=== PATIENT | female | born 1990 | race African-American/Black ===

== ENCOUNTER 2016-06-27 20:21 | Emergency (ER) | payer MEDICAID ==
--- NOTE | 2016-06-27 23:26 | ER Document Report ---
ED General - General Chief Complaint: Vaginal pain/ pressure, spotting Stated Complaint: VAGINAL PAIN Notes: Patient is a 25-year-old female who presents with complaint of pain and cramping in her abdomen. She also some vaginal spotting. This is her fourth . First 2 pregnancies resulted in live births. Third resulted in miscarriage. She's had no complications this thus far. Vomiting. No diarrhea. She says that the spotting since stopped. The cramping also seems to have stopped. She is approximately 20 weeks by dates. TRAVEL OUTSIDE OF THE [place] IN LAST 30 DAYS: No - Related Data Allergies/Adverse Reactions: No Known Allergies Allergy (Verified 09/03/15 00:05) Past Medical History - Social History Smoking Status: Never Smoker Frequency of alcohol use: None Drug Abuse: None Family History: Reviewed & Not Pertinent Pulmonary Medical History: Reports: Hx Pneumonia Renal/ Medical History: Denies: Hx Peritoneal Dialysis - Immunizations Immunizations up to date: Yes Hx Diphtheria, Pertussis, Tetanus Vaccination: Yes Review of Systems - Review of Systems Notes: My Normal Review Basic REVIEW OF SYSTEMS: CONSTITUTIONAL : Denies fever, chills, or sweats. Denies recent illness. EENT: Denies eye, ear, throat, or mouth pain or symptoms. Denies nasal or sinus congestion. RESPIRATORY: Denies cough, cold, or chest congestion. Denies shortness of breath, difficulty breathing, or wheezing. GASTROINTESTINAL: Denies abdominal pain. Denies nausea, vomiting, or diarrhea. Denies constipation. Last BM: GENITOURINARY: Denies difficulty urinating, painful urination, burning, frequency, or blood in urine. FEMALE GENITOURINARY: Some vaginal spotting LMP: Currently SKIN: Denies rash or skin lesions. HEMATOLOGIC : Denies easy bruising or bleeding. NEUROLOGICAL: Denies altered mental status or loss of consciousness. Denies headache. Denies weakness or paralysis or loss of use of either side. Denies problems with gait or speech. Denies sensory or motor loss. ALL OTHER SYSTEMS REVIEWED AND NEGATIVE. Physical Exam - Notes Notes: General Appearance: Well nourished, alert, cooperative, no acute distress, no obvious discomfort. Vitals: reviewed, See vital signs table. Head: no swelling or tenderness to the head Eyes: PERRL, EOMI, Conjuctiva clear Mouth: No decreasd moisture Neck: Supple, no neck tenderness, Lungs: No wheezing, No rales, No rhonci, No accessory muscle use, good air exchange bilaterally. Heart: Normal rate, Regular rythm, No murmur, no rub Abdomen: Normal BS, soft, No rigidity, No abdominal tenderness, No guarding, no rebound, no abdominal masses, no organomegaly Pelvic exam: Normal external genitalia except for one small inflamed hair follicle. No surrounding erythema infection. Patient says she gets these frequently. No abscess to be drained. Speculum exam shows no blood. She does have some creamy type discharge. Close cervical os. Extremities: strength 5/5 in all extremities, good pulses in all extremities, no swelling or tenderness in the extremities, no edema. Skin: warm, dry, appropriate color, no rash Neuro: speech clear, oriented x 3, normal affect, responds appropriately to questions. Course - Transfer of Care Notes: 06/28/16 01:46 Patient's vaginal swab did show evidence of bacterial vaginosis. She was placed on antibiotic. She again denies any concerns for sexually transmitted diseases. She says she was recently tested and this was negative. Gonorrhea and chlamydia swabs here are pending. I informed her we would call her if they' re positive. Encourage her follow closely with her OB for reevaluation. I encourage her to return to ER immediately if she has vaginal bleeding, pain, or feels unwell. Cornea patient's previous records she is blood type B positive and therefore RhoGAM workup was not ordered. Dictation of this chart was performed using voice recognition software; therefore, there may be some unintended grammatical errors. Discharge - Discharge Clinical Impression: Bacterial vaginosis Abdominal pain Qualifiers: Abdominal location: lower abdomen, unspecified Qualified Code(s): R10.30 - Lower abdominal pain, unspecified Qualifiers: Weeks of gestation: 20 weeks Qualified Code(s): Z3A.20 - 20 weeks gestation of Condition: Good Disposition: HOME, SELF-CARE Additional Instructions: Please follow up with your OB doctor in 2-3 days for reevaluation. Please take the antibiotics as prescribed. Please return to the ER immediately if you develop fevers, worsening pain, vaginal bleeding, or feel unwell. Prescriptions: Metronidazole [Flagyl 500 mg Tablet] 500 mg PO BID #14 tablet Referrals: DELORES HAQ MD [Primary Care Provider] - 06/30/16
[2016-06-28] MEDS ORDERED: METRONIDAZOLE 500 MG TABLET PO ONE (01:37)
[2016-06-28 02:22] VITALS: BP 123/74
[2016-06-28 03:32] LABS: CHLAM PCR NOT DETECTED (NOT DETECT)
== END 2016-06-28 02:23 | disposition home or self-care (01) ==
LOC: ER 20:21
DX: O23.592 Infection of other part of genital tract in pregnancy, second trimester (principal); N76.0 Acute vaginitis; B96.89 Other specified bacterial agents as the cause of diseases classified elsewhere; O26.892 Other specified pregnancy related conditions, second trimester; R10.2 Pelvic and perineal pain; O26.852 Spotting complicating pregnancy, second trimester; Z3A.20 20 weeks gestation of pregnancy
CPT/HCPCS: 99283; 87210; 87491; 87591; 76805; 93976; J3490

== ENCOUNTER 2016-07-03 13:32 | Emergency (ER) | payer MEDICAID ==
[2016-07-03 14:40] LABS: APPEARANCE,URINE SLIGHTLY-CLOUDY; BILIRUBIN,URINE NEGATIVE (NEGATIVE); GLUCOSE, URINE 50 mg/dL (NEGATIVE); KETONES,URINE NEGATIVE (NEGATIVE); LEUKOCYTE ESTERASE,URINE LARGE (NEGATIVE); NITRITE,URINE NEGATIVE (NEGATIVE); PROTEIN,URINE 30 mg/dL (NEGATIVE); URINE SPECIFIC GRAVITY 1.027; UROBILINOGEN,URINE NEGATIVE mg/dL (<2.0)
--- NOTE | 2016-07-03 15:04 | ER Document Report ---
HPI - HPI Patient complains to provider of: FREQUENT URINATION Onset: Yesterday Onset/Duration: Gradual Quality of pain: No pain Severity: None Pain Level: Denies Context: Patient states she feels like she is going to the bathroom every 5 minutes. Associated Symptoms: None Exacerbated by: Denies Relieved by: Denies Similar symptoms previously: Yes Recently seen / treated by doctor: Yes - ROS ROS below otherwise negative: Yes Systems Reviewed and Negative: Yes All other systems reviewed and negative - CONSTITUTIONAL Constitutional: DENIES: Fever - EENT EENT: DENIES: Congestion - NEURO Neurology: DENIES: Headache - CARDIOVASCULAR Cardiovascular: DENIES: Chest pain - RESPIRATORY Respiratory: DENIES: Trouble Breathing - GASTROINTESTINAL Gastrointestinal: DENIES: Abdominal Pain - URINARY Urinary: REPORTS: Dysuria, Urgency, Frequency - REPRODUCTIVE Reproductive: DENIES: : - MUSCULOSKELETAL Musculoskeletal: DENIES: Extremity pain - DERM Skin Color: Normal Skin Problems: None Past Medical History - General Information source: Patient - Social History Smoking Status: Never Smoker Frequency of alcohol use: None Drug Abuse: None Lives with: Spouse/Significant other Family History: Reviewed & Not Pertinent Patient has suicidal ideation: No Patient has homicidal ideation: No Pulmonary Medical History: Reports: Hx Pneumonia Renal/ Medical History: Denies: Hx Peritoneal Dialysis Surgical Hx: Negative - Immunizations Immunizations up to date: Yes Hx Diphtheria, Pertussis, Tetanus Vaccination: Yes Vertical Provider Document - CONSTITUTIONAL Agree With Documented VS: Yes General Appearance: WD/WN, No Apparent Distress - INFECTION CONTROL TRAVEL OUTSIDE OF THE [place] IN LAST 30 DAYS: No - HEENT HEENT: Atraumatic, Normocephalic - RESPIRATORY Respiratory: Breath Sounds Normal, No Respiratory Distress O2 Sat by Pulse Oximetry: 100 - CARDIOVASCULAR Cardiovascular: Regular Rate, Regular Rhythm - GI/ABDOMEN Gastrointestinal: Abdomen Tender - SUPRAPUBIC TENDERNESS ONLY - MUSCULOSKELETAL/EXTREMETIES Musculoskeletal/Extremeties: ARABELLA VALLEJO - NEURO Level of Consciousness: Awake, Alert, Appropriate - DERM Integumentary: Warm, Dry Course - Vital Signs Vital signs: Temp Pulse Resp BP Pulse Ox 98.3 F 105 H 18 138/83 H 100 07/03/16 13:50 07/03/16 13:50 07/03/16 13:50 07/03/16 13:50 07/03/16 13:50 - Laboratory Laboratory results interpreted by me: 07/03/16 14:16 Urine Protein 30 H Urine Glucose (UA) 50 H Ur Leukocyte Esterase LARGE H Discharge - Discharge Clinical Impression: Dysuria Condition: Good Disposition: HOME, SELF-CARE Additional Instructions: Your urine showed a lot of bacteria in it so a urine culture was ordered. Results take 3 days to come back. Take antibiotics as prescribed. You will be notified if they need to be changed. Push fluids Follow-up with [facility] week for recheck. Return if symptoms worsen. Prescriptions: Cephalexin [Cephalexin 500 MG Capsule] 1 cap PO QID #20 capsule
[2016-07-03 15:14] VITALS: BP 107/69
== END 2016-07-03 15:12 | disposition home or self-care (01) ==
LOC: ER 13:32
DX: R30.0 Dysuria (principal); R35.0 Frequency of micturition
CPT/HCPCS: 81001; 87086; 87088; 99283

== ENCOUNTER 2016-11-10 20:34 | Outpatient (CLI) | payer MEDICAID ==
[2016-11-10 21:37] LABS: APPEARANCE,URINE SLIGHTLY-CLOUDY; BILIRUBIN,URINE NEGATIVE (NEGATIVE); GLUCOSE, URINE 150 mg/dL (NEGATIVE); KETONES,URINE NEGATIVE (NEGATIVE); LEUKOCYTE ESTERASE,URINE SMALL (NEGATIVE); NITRITE,URINE NEGATIVE (NEGATIVE); PROTEIN,URINE NEGATIVE (NEGATIVE); URINE SPECIFIC GRAVITY 1.023
[2016-11-10 22:02] LABS: URINE BARBITURATES SCREEN NEGATIVE; URINE METHADONE SCREEN NEGATIVE; URINE OPIATES LOW NEGATIVE; URINE PHENCYCLIDINE SCREEN NEGATIVE
== END 2016-11-10 22:18 | disposition home or self-care (01) ==
LOC: LC 20:34
PROVIDERS: ATTEND Specialist
PROC: 4A1HXCZ Monitoring of Products of Conception, Cardiac Rate, External Approach (ICD-10-PCS; principal; 2016-11-10)
DX: O47.1 False labor at or after 37 completed weeks of gestation (principal); Z3A.39 39 weeks gestation of pregnancy
CPT/HCPCS: 59025; 80307; 81005

== ENCOUNTER 2016-11-14 02:47 | Inpatient (IN) | payer MEDICAID ==
--- NOTE | 2016-11-14 03:02 | Non Stress Test Report ---
Non Stress Test Datetime Report Generated by CPN: 11/14/2016 03:01 DEMOGRAPHIC EGA NST: 39.2 INDICATION Indication for Study: Ordered by Provider Indication for Study (NST) Other: LC MONITORING Monitor Explained: Monitor Explained; Test Explained; Patient Verbalized Understanding Time on Monitor: 11/10/2016 20:55 Time off Monitor: 11/10/2016 22:09 NST Duration: 74 NST INTERVENTIONS NST Interventions: PO Hydration; Reposition Patient Physician Notified NST: Dr. Neilsen BABY A: [id number] BABY A Movement : Present Contraction Frequency : None FHR Baseline : 135 Accelerations : 15X15 Decelerations : None Variability : Moderate 6-25bpm NST Review: Meets Criteria for Reactive NST NST Review and Verified By : Angelina Henley RN NSMadelyn Results: Reactive NST REPORT Report Trigger: Send Report
[2016-11-14] MEDS ORDERED: RINGERS SOLUTION,LACTATED 1,000 ML IV ONE (03:11)
[2016-11-14] MEDS ORDERED: PENICILLIN G POTASSIUM 5,000,000 UNIT in DEXTROSE 5%-WATER 100 ML IV ONE (03:11)
[2016-11-14] MEDS ORDERED: PENICILLIN G-K 5 MILLION UNIT VIAL ONE (03:17)
[2016-11-14 03:22] LABS: APPEARANCE,URINE CLEAR; BILIRUBIN,URINE NEGATIVE (NEGATIVE); GLUCOSE, URINE 150 mg/dL (NEGATIVE); KETONES,URINE NEGATIVE (NEGATIVE); LEUKOCYTE ESTERASE,URINE LARGE (NEGATIVE); NITRITE,URINE NEGATIVE (NEGATIVE); PROTEIN,URINE NEGATIVE (NEGATIVE); URINE SPECIFIC GRAVITY 1.006; UROBILINOGEN,URINE NEGATIVE mg/dL (<2.0)
[2016-11-14] MEDS ORDERED: PENICILLIN G-K 5 MILLION UNIT VIAL IV PRN (03:29)
[2016-11-14 03:32] LABS: ABSOLUTE EOSINOPHILS # (AUTO) 0.1 10^3/uL (0.0-0.6); ABSOLUTE MONOCYTES (AUTO) 0.7 10^3/uL (0.1-1.4); ABSOLUTE NEUT (AUTO) 5.9 10^3/uL (1.7-8.2); BASOPHILS % (AUTO) 0.6 % (0-2); EOSINOPHILS % (AUTO) 1.2 % (0-6); HEMATOCRIT 29.9 % (36.0-47.0); HEMOGLOBIN 9.7 g/dL (12.0-15.5); HGB HCT DIFFERENCE -0.8; LYMPHOCYTES % (AUTO) 22.7 % (13-45); MEAN CORPUSCULAR HEMOGLOBIN 23.2 pg (27.0-33.4); MEAN CORPUSCULAR HGB CONC 32.4 g/dL (32.0-36.0); MEAN CORPUSCULAR VOLUME 72 fl (80-97); MONOCYTES % (AUTO) 7.8 % (3-13); RED BLOOD COUNT 4.17 10^6/uL (3.72-5.28); RED CELL DISTRIBUTION WIDTH 18.3 % (11.5-14.0); SEGMENTED NEUTROPHILS % (AUTO) 67.7 % (42-78); WHITE BLOOD COUNT 8.7 10^3/uL (4.0-10.5)
[2016-11-14 03:39] LABS: URINE BARBITURATES SCREEN NEGATIVE; URINE METHADONE SCREEN NEGATIVE; URINE OPIATES LOW NEGATIVE; URINE PHENCYCLIDINE SCREEN NEGATIVE
[2016-11-14] MEDS ORDERED: MISOPROSTOL 0.2 MG TABLET ONE (04:16)
[2016-11-14] MEDS ORDERED: EPHEDRINE SULFATE INJ 50 MG/1 ML AMPULE ONE (04:17)
[2016-11-14] MEDS ORDERED: FENTANYL CITRATE INJ/PF 100 MCG/2 ML AMPUL ONE (04:17)
[2016-11-14] MEDS ORDERED: LIDOCAINE 1% INJ-PF (10 MG/ML) 30 ML SDV ONE (04:17)
[2016-11-14] MEDS ORDERED: OXYTOCIN/NORMAL SALINE 20 UNIT/1,000 ML RTUINJ ONE (04:17)
[2016-11-14] MEDS ORDERED: FENTANYL/BUPIVACAINE/NS/PF 200 MCG/100 ML RTUINJ EPI ONE (04:17)
[2016-11-14] MEDS ORDERED: BUPIVACAINE HCL 0.25 % INJ/PF (2.5 MG/1 ML) 30 ML VIAL ONE (04:18)
[2016-11-14] MEDS ORDERED: ZOLPIDEM TARTRATE 5 MG TABLET PO PRN (06:06)
[2016-11-14] MEDS ORDERED: BENZOCAINE/MENTHOL AEROSOL SPRAY 56 ML TOP PRN (06:06)
[2016-11-14] MEDS ORDERED: DIBUCAINE 1% OINTMENT 28 GM TP PRN (06:06)
[2016-11-14] MEDS ORDERED: OXYTOCIN/NORMAL SALINE 20 UNIT/1,000 ML RTUINJ IV PRN (06:06)
[2016-11-14] MEDS ORDERED: ACETAMINOPHEN WITH CODEINE #3 TABLET PO PRN ×2 (06:06)
[2016-11-14] MEDS ORDERED: MEASLES,MUMPS&RUBELLA VACC/PF 0.5 ML VIAL SUBCUT PRN (06:06)
[2016-11-14] MEDS ORDERED: DIPH/PERTUSS(ACELL)/TETANUS VAC/PF 0.5 ML SYR (>=10YO) IM PRN (06:06)
--- NOTE | 2016-11-14 07:10 | Delivery Summary ---
Del Sum A-C Datetime Report Generated by CPN: 11/14/2016 07:09 DELIVERY PERSONNEL DELIVERY PERSONNEL: [id number] Delivery Doctor:: Karlie Bowman CNM Nurse Engineering Executive Certified:: Karlie Bowman CNM Labor and Delivery Nurse:: Sandie Cowan RNsmoking pipes cleaner Nurse:: Jameel Serrato RN Nursery Nurse:: Jameel Serrato RN MATERNAL INFORMATION Delivery Anesthesia: Epidural Medications After Delivery: Pitocin Bolus-Please Comment Meds After Delivery Comment: 20 units pitocin after placenta delivery Estimated Blood Loss (ml): 300 Maternal Complications: None Provider Comments: of viable female , head, shoulders, and body delivered without difficulty. with spontaneous cry and respirations, to maternal abdomen, cord clamped X2 and cut free by pts mother after 2 minute delay. Spontaneous delivery of placenta via reyes mechanism, appears intact, 3 VC. Vagina and perineum inspected, repair as above. Hemostasis acheived with external fundal massage and IV pitocin. Mother and infant in stable condition, routine pp care. LABOR SUMMARY EDC: 11/15/2016 00:00 No. Babies in Womb: 1 Attempted: No Labor Anesthesia: Epidural LABOR INFORMATION Onset of Labor: 11/14/2016 02:00 Complete Dilatation: 11/14/2016 05:36 Oxytocin: N/A Group B Beta Strep: Positive Antibiotics # of Doses: 1 Antibiotics Time of Last Dose: 0322 Name of Antibiotic Given: penicillin Steroids Given: None Reason Steroids Not Administered: Not Applicable MEMBRANES Membranes Rupture Method: Artificial Rupture of Membranes: 11/14/2016 05:37 Length of Rupture (hr): 0.23 Amniotic Fluid Color: Clear Amniotic Fluid Amount: Small Amniotic Fluid Odor: Normal STAGES OF LABOR Stage 1 hr: 3 Stage 1 min: 36 Stage 2 hr: 0 Stage 2 min: 15 Stage 3 hr: 0 Stage 3 min: 4 Total Time in Labor hr: 3 Total Time in Labor min: 55 VAGINAL DELIVERY Episiotomy: None Laceration Extension: First Degree Laceration Type: Perineal Laceration Repair: Yes Laceration Repair Note: repaired with 3-[address] using epidural anesthesia Sponge Count Correct: Yes Sharps Count Correct: Yes CSECTION DELIVERY Primary Indication: N/A Secondary Indication: N/A CSection Urgency: n/a CSection Incidence: n/a Labor: N/A Elective: N/A CSection Incision: N/A BABY A INFORMATION Delivery Date/Time: 11/14/2016 05:51 Method of Delivery: Vaginal Born in Route : No : N/A Forceps: N/A Vacuum Extraction: N/A Shoulder Dystocia : No PRESENTATION/POSITION BABY A Presentation: Cephalic Cephalic Presentation: Vertex Vertex Position: Left Occipital Anterior Breech Presentation: N/A PLACENTA INFORMATION BABY A Placenta Delivery Time : 11/14/2016 05:55 Placenta Method of Delivery: Spontaneous Placenta Status: Delivered SCORES BABY A Heart Rate 1 min: >100 bpm Resp Effort 1 min: Good Cry Reflex Irritability 1 min: Cough or Sneeze or Pulls Away Muscle Tone 1 min: Active Motion Color 1 min: Body [place], Extremities Blue Resuscitation Effort 1 min: Tactile Stimulation SCORE 1 MIN: 9 Heart Rate 5 min: >100 bpm Resp Effort 5 min: Good Cry Reflex Irritability 5 min: Cough or Sneeze or Pulls Away Muscle Tone 5 min: Active Motion Color 5 min: Body [place], Extremities Blue Resuscitation Effort 5 min: N/A SCORE 5 MIN: 9 INFANT INFORMATION BABY A Gestational Age at Delivery: 39.6 Gestational Status: Full Term- 39- 40.6 Weeks Infant Outcome : Liveborn Infant Condition : Stable Sex: Female IDENTIFICATION BABY A Infant Verification Date/Time: 11/14/2016 06:27 ID Band Number: [id number] Mother's Name Verified: Yes RN Verifying Infant: Sandie Cowan RN Additional Verifying Personnel: Yuong Gibbons RN WEIGHT/LENGTH BABY A Infant Birthweight (gm): 3500 Infant Weight (lb): 7 Infant Weight (oz): 11 Length (in): 20.75 Infant Length (cm): 52.71 CORD INFORMATION BABY A No. Cord Vessels: 3 Nuchal Cord : N/A Cord Blood Taken: Yes-For Storage (Mom's Blood type +) Infant Suction: None ASSESSMENT BABY A Physical Findings at Delivery: Other Physical Findings- Other: see nursery notes Respirations: Appears Normal Skin to Skin: Yes Skin to Skin Time (min): 30 Event Attendant/ALS Called : No Care By: ArelyAnand Ama RN Transferred To: Remains with Mother BABY B INFORMATION : N/A SIGNATURES Assignment: Jennifer Valencia MD Signature: with User ID: Mine : with User ID: [email or web address]
[2016-11-14] MEDS ORDERED: PENICILLIN G POTASSIUM 2,500,000 UNIT in DEXTROSE 5%-WATER 50 ML IV SCH (07:13)
--- NOTE | 2016-11-14 08:42 | Admission Physical ---
Datetime Report Generated by CPN: 11/14/2016 08:42 CURRENT ADMISSION Chief Complaint: Uterine Contractions Indication for Induction: Not Applicable Admit Plan: Admit to Unit; Initiate Labor Protocol ALLERGIES Medication Allergies: No Medication Allergies: No Known Allergies (11/14/2016) Medication Allergies: No Known Allergies (11/10/2016) Medication Allergies: No Known Allergies (07/03/2016) Latex: No Latex Allergies Food Allergies: N/A Environmental Allergies: N/A OBSTETRICAL HISTORY EDC: 11/15/2016 00:00 : 4 Para: 3 Term: 2 : 1 SAB: 0 IAB: 0 Ectopic: 0 Livin Cesareans: 0 VBACs: 0 Multiple Births: 0 Gestational Diabetes: No Rh Sensitization: No Incompetent Cervix: No RICHY: No Infertility: No ART Treatment: No Uterine Anomaly: No IUGR: No Hx Previous C/S: No Macrosomia: No Hx Loss/Stillborn: No PIH: No Hx : Yes Placenta Previa/Abruption: No Depression/PP Depression: No PTL/PROM: No Post Hemorrhage: No Current Procedures: Ultrasound Obstetrical History Comments: G1 - 2007, , boy G2 - 2009, , girl G3 - 2014, at 21.5 weeks, baby G4 - Current SEE RECORDS Alcohol: No Marijuana : No Cocaine: No Other Illicit Drugs: No Cigarettes: Never Smoker. [id number] MEDICAL HISTORY Diabetes: No Blood Transfusion: No Pulmonary Disease (Asthma, TB): No Breast Disease: No Hypertension: No Team Leader/Research Psychologist Surgery: No Heart Disease: No Hosp/Surgery: No Autoimmune Disorder: No Anesthetic Complications: No Kidney Disease: No Abnormal Pap Smear: No Neuro/Epilepsy: No Psychiatric Disorders: No Other Medical Diseases: No Hepatitis/Liver Disease: No Significant Family History: No Varicosities/Phlebitis: No Trauma/Violence : No Thyroid Dysfunction: No INFECTIOUS HISTORY Gonorrhea: Yes Genital Herpes: No Chlamydia: Yes Tuberculosis: No Syphilis: No Hepatitis: No HIV/AIDS Exposure: No Rash or Viral Illness: No HPV: No Infectious History Comments: Gonorrhea - 2014 Chlamydia - 2015 PHYSICAL EXAM General: Normal HEENT: Normal Neurologic: Normal Thyroid: Normal Heart: Normal Lungs: Normal Breast: Deferred Back: Normal Abdomen: Normal Genitourinary Exam: Normal Extremities: Normal DTRs: Normal Pelvic Type: Adequate Vital Signs: Reviewed VAGINAL EXAM Dilatation: 6 Effacement: 80 Station: -2 Contraction Comments: q 3-4 MEMBRANES Membranes: Intact FETUS A EGA: 39.6 Monitoring: External US FHR- Baseline: 130 Variability: Moderate 6-25bpm Accelerations: 15X15 Decelerations: None FHR Category: Category I Presentation: Vertex Admit Comment: 25yo at 39+6ega presents for regular uterine ctx. GBS positive - PCN for GBS prophy. c/b anemia and h/o 21wks loss. Cvx 6cm upon arrival and membranes intact. PCN for GBS prophy then when 4 hours complete then AROM. Pitocin if needed for augmentation. Anticipate - pelvis proven to 6#13oz. Admit to L_D for labor protocol. EFW approx 7-8# PLANS FOR LABOR AND DELIVERY Labor and Delivery: None Pain Management: Epidural Feeding Preference: Both Benefit of Breast Feed Discussed: Yes Circumcision: N/A INFORMED CONSENT Informed Consent Obtained: Vaginal Delivery; Risks, Benefits and Alternatives Discussed Signature: with User ID: [email or web address]
[2016-11-14] MEDS: DOCUSATE SODIUM 100 MG CAPSULE PO SCH ×2 (09:29→17:02)
[2016-11-14] MEDS: FERROUS SULFATE 325 MG TABLET PO SCH ×2 (09:30→17:02)
[2016-11-14] MEDS: SENNOSIDES/DOCUSATE 8.6-50 MG 1 EACH TABLET PO SCH (09:30)
[2016-11-14] MEDS: PRENATAL VITAMIN W-O CA NO5/FE FUMARATE/FA CAPSULE PO SCH (09:30)
[2016-11-14] MEDS: IBUPROFEN 800 MG TABLET PO SCH ×2 (14:14→21:10)
[2016-11-15] MEDS: IBUPROFEN 800 MG TABLET PO SCH ×3 (05:06→21:23)
[2016-11-15 07:29] LABS: HEMATOCRIT 28.8 % (36.0-47.0); HEMOGLOBIN 9.3 g/dL (12.0-15.5); HGB HCT DIFFERENCE -0.9; MEAN CORPUSCULAR HEMOGLOBIN 23.8 pg (27.0-33.4); MEAN CORPUSCULAR HGB CONC 32.4 g/dL (32.0-36.0); MEAN CORPUSCULAR VOLUME 74 fl (80-97); RED BLOOD COUNT 3.92 10^6/uL (3.72-5.28); RED CELL DISTRIBUTION WIDTH 18.5 % (11.5-14.0); WHITE BLOOD COUNT 8.4 10^3/uL (4.0-10.5)
--- NOTE | 2016-11-15 09:01 | PDOC PROGRESS REPORT ---
Subjective-OB Subjective: Post Delivery Day: 1 25 year old. Denies any needs at this time, lochia is stable, pain well controlled, voiding without difficulty. Physical Exam (OB) Vital Signs: Temp Pulse Resp BP Pulse Ox 98.0 F 72 16 119/84 100 11/15/16 07:09 11/15/16 07:09 11/15/16 07:09 11/15/16 07:09 11/15/16 07:09 Intake & Output 11/14/16 11/15/16 11/16/16 06:59 06:59 06:59 Intake Total 2210 Balance 2210 Weight 95.7 kg - Lochia Lochia Amount: Scant < 10 ml Lochia Color: Rubra/Red - Abdomen Description: Soft Hernia Present: No Fundal Description: Firm, Midline Fundal Height: u/u - u/2 Objective-Diagnostic Laboratory: 11/15/16 07:02 11/15/16 07:02 WBC 8.4 RBC 3.92 Hgb 9.3 L Hct 28.8 L MCV 74 L MCH 23.8 L MCHC 32.4 RDW 18.5 H Plt Count 208 Assessment and Plan(PN) - Assessment and Plan (1) Vaginal delivery Is this a current diagnosis for this admission?: Yes Plan: routine pp care - Time Spent with Patient Time with patient: Less than 15 minutes Critical Time spent with patient: Less than 15 minutes Medications reviewed and adjusted accordingly: Yes - Disposition Anticipated Discharge: Home Within: within 24 hours
[2016-11-15] MEDS: PRENATAL VITAMIN W-O CA NO5/FE FUMARATE/FA CAPSULE PO SCH (09:44)
[2016-11-15] MEDS: FERROUS SULFATE 325 MG TABLET PO SCH ×2 (09:44→17:05)
[2016-11-15] MEDS: SENNOSIDES/DOCUSATE 8.6-50 MG 1 EACH TABLET PO SCH (09:44)
[2016-11-15] MEDS: DOCUSATE SODIUM 100 MG CAPSULE PO SCH ×2 (09:44→17:05)
[2016-11-16] MEDS: IBUPROFEN 800 MG TABLET PO SCH (05:43)
[2016-11-16 07:44] VITALS: BP 124/72
[2016-11-16] MEDS: PRENATAL VITAMIN W-O CA NO5/FE FUMARATE/FA CAPSULE PO SCH (09:25)
[2016-11-16] MEDS: FERROUS SULFATE 325 MG TABLET PO SCH (09:26)
[2016-11-16] MEDS: SENNOSIDES/DOCUSATE 8.6-50 MG 1 EACH TABLET PO SCH (09:26)
[2016-11-16] MEDS: DOCUSATE SODIUM 100 MG CAPSULE PO SCH (09:26)
--- NOTE | 2016-11-16 10:31 | PDOC DISCHARGE SUMMARY ---
Final Diagnosis Discharge Date: 11/16/16 - Final Diagnosis (1) Acute blood loss anemia Is this a current diagnosis for this admission?: Yes (2) Vaginal delivery Is this a current diagnosis for this admission?: Yes Discharge Data - Discharge Medication Home Medications: Vit#96/Ferrous Fum/FA [ Tablet] 1 each PO DAILY #30 tablet Docusate Sodium [Colace 100 mg Capsule] 100 mg PO BID #60 capsule 11/16/16 Ferrous Sulfate [Feosol 325 mg Tablet] 325 mg PO BID #60 tablet 11/16/16 Ibuprofen [Motrin 800 mg Tablet] 800 mg PO Q8HP PRN #30 tablet 11/16/16 Reason(s) for Admission: Onset of Labor Procedures: NST, Ultrasound Intrapartum Procedure(s): Spontaneous Vaginal Delivery Complication(s): Laceration-Perineal Laceration-Degree: 1st - Diagnosis Test Laboratory: Temp Pulse Resp BP Pulse Ox 98.2 F 75 16 124/72 100 11/16/16 08:31 11/16/16 08:31 11/16/16 08:31 11/16/16 07:30 11/16/16 08:31 11/14/16 11/14/16 11/15/16 03:00 03:20 07:02 RBC 4.17 3.92 Hgb 9.7 L 9.3 L Hct 29.9 L 28.8 L Urine Opiates Screen NEGATIVE - Discharge information/Instructions Discharge Activity: Activity As Tolerated, Balance Activity w/Rest, No Lifting Over 10 Pounds, No Lifting/Push/Pulling, Pelvic Rest, Slowly Increase Activity, No tub bath Discharge Diet: Regular Disposition: HOME, SELF-CARE Follow up with: [facility] in: 4, Weeks
== END 2016-11-16 11:05 | disposition home or self-care (01) | DRG 775 ==
LOC: LC 02:47 → LR 03:14 → 2N 08:41
PROVIDERS: ADMIT Student in an Organized Health Care Education/Training Program; ATTEND Student in an Organized Health Care Education/Training Program
PROC: 10E0XZZ Delivery of Products of Conception, External Approach (ICD-10-PCS; principal; 2016-11-14)
PROC: 0HQ9XZZ Repair Perineum Skin, External Approach (ICD-10-PCS; 2016-11-14)
PROC: 10907ZC Drainage of Amniotic Fluid, Therapeutic from Products of Conception, Via Natural or Artificial Opening (ICD-10-PCS; 2016-11-14)
PROC: 4A1HXCZ Monitoring of Products of Conception, Cardiac Rate, External Approach (ICD-10-PCS; 2016-11-14)
DX: O99.824 Streptococcus B carrier state complicating childbirth (principal); D62 Acute posthemorrhagic anemia; O99.02 Anemia complicating childbirth; O70.0 First degree perineal laceration during delivery; Z3A.39 39 weeks gestation of pregnancy; Z37.0 Single live birth
CPT/HCPCS: 36415; 80307; 81005; 85025; 85027; 86592; 86850; 86900; 86901; J2540; J2590; J3010; J3490

== ENCOUNTER 2016-11-18 19:55 | Emergency (ER) | payer MEDICAID ==
--- NOTE | 2016-11-18 21:46 | ER Document Report ---
ED General - General Mode of Arrival: Ambulatory Information source: Patient TRAVEL OUTSIDE OF THE [place] IN LAST 30 DAYS: No - HPI Onset: Other - Refer to HPI notes Similar symptoms previously: No Recently seen / treated by doctor: No - General Chief Complaint: Shortness Of Breath Stated Complaint: SHORTNESS OF BREATH Time Seen by Provider: 11/18/16 21:44 - HPI Notes: Patient is a 25 year old female who is 4 days post- presenting to the emergency department for shortness of breath. Patient states she was out running errands and she took her to a doctors appointment. Patient states that she started having some shortness of breath and patient states that she currently feels better and back to baseline. Patient states her shortness of breath will return if she walks at a fast pace. Patient denies any chest pain but does have some pain in her breasts due to engorgement from milk production. Patient has decided to not breast feed her child so she is not pumping or breast feeding. Patient states she has been using warm compresses on her breast but no form of compression. Patient denies any fever. Patient's delivery 4 days ago was vaginally at the 39 week usama and she was not induced with no complications. Patient states she has been taking Motrin, stool softeners, and an iron pill. Patient has no known allergies. (MARY JO FERNANDEZ) - Related Data Allergies/Adverse Reactions: No Known Allergies Allergy (Verified 11/18/16 22:29) Past Medical History - General Information source: Patient - Social History Smoking Status: Never Smoker Cigarette use (# per day): No Chew tobacco use (# tins/day): No Smoking Education Provided: No Frequency of alcohol use: None Drug Abuse: None Family History: None Patient has suicidal ideation: No Patient has homicidal ideation: No - Medical History Medical History: Negative Pulmonary Medical History: Reports: Hx Pneumonia Surgical Hx: Negative - Immunizations Immunizations up to date: Yes Hx Diphtheria, Pertussis, Tetanus Vaccination: Yes Review of Systems - Review of Systems Constitutional: No symptoms reported EENT: No symptoms reported Cardiovascular: No symptoms reported. denies: Chest pain Respiratory: See HPI, Short of breath Gastrointestinal: No symptoms reported Genitourinary: No symptoms reported Female Genitourinary: No symptoms reported Musculoskeletal: No symptoms reported Skin: See HPI Hematologic/Lymphatic: No symptoms reported Neurological/Psychological: No symptoms reported -: Yes All other systems reviewed and negative Physical Exam - Vital signs Interpretation: Hypertensive - Vital signs Vitals: Temp Pulse Resp BP Pulse Ox 98.6 F 67 24 H 153/89 H 100 11/18/16 20:45 11/18/16 20:45 11/18/16 20:45 11/18/16 20:45 11/18/16 20:45 - Notes Notes: GENERAL: Alert, interacts well. No acute distress. HEAD: Normocephalic, atraumatic. EYES: Pupils equal, round, and reactive to light. Extraocular movements intact. ENT: Oral mucosa moist, tongue midline. NECK: Full range of motion. Supple. Trachea midline. LUNGS: No tachypneia. Clear to auscultation bilaterally, no wheezes, rales, or rhonchi. No respiratory distress. No shortness of breath. 100% oxygen saturation on room air. Breast engorgement. HEART: No tachycardia. Regular rate and rhythm. No murmurs, gallops, or rubs. ABDOMEN: Soft, non-tender. Non-distended. Bowel sounds present in all 4 quadrants. EXTREMITIES: Moves all 4 extremities spontaneously. No edema, dorsalis pedis pulses 2/4 bilaterally. No cyanosis. NEUROLOGICAL: Alert and oriented x3. Normal speech. PSYCH: Normal affect, normal mood. SKIN: Warm, dry, normal turgor. No rashes or lesions noted. (MARY JO FERNANDZE) Course - Re-evaluation Re-evalutation: 11/18/16 22:07 No chest pain, on examination she is not tachycardic nor is she hypoxic nor is she tachypneic. Patient is feeling well while laying down, states that normal day-to-day activity does not make her feel short of breath it was only the increased exertion today of taking her 4-day-old to the doctor's office that made her feel somewhat short of breath. At present patient does not have any physical exam findings consistent with a pulmonary embolism. Discussed with patient that a d-dimer would not be accurate in somebody who is 4 days therefore I am not going to order it. Patient is agreeable to not having a CT angiogram of the chest done at this point as I have very low clinical suspicion for a pulmonary embolism and suspect that her shortness of breath earlier was due to overexertion of 4 days . Patient will return for worsening shortness of breath, any chest pain, any difficulty breathing or swelling in her legs. Of note patient does also have bilateral breast engorgement, she is not nursing or pumping, patient was counseled on strategies to relieve engorgement. (CAROLYN HAGAN) - Vital Signs Vital signs: Temp Pulse Resp BP Pulse Ox 98.2 F 67 18 133/86 H 98 11/18/16 22:15 11/18/16 20:45 11/18/16 22:00 11/18/16 22:00 11/18/16 22:00 - EKG Interpretation by Me Additional EKG results interpreted by me: 11/18/16 22:11 EKG shows sinus bradycardia at a rate of 55, normal axis, normal intervals, no ST segment elevations or depressions, isolated T-wave inversions in V2 which are concordant per my interpretation. (CAROLYN HAGAN) Discharge - Discharge Clinical Impression: Shortness of breath Hypertension Qualifiers: Hypertension type: essential hypertension Qualified Code(s): I10 - Essential ( primary) hypertension Condition: Stable Disposition: HOME, SELF-CARE Additional Instructions: Today I did not see any signs of blood clot to your lungs. Your heart was not going to fast nor was your oxygen level low, nor were you breathing too quickly. If you develop significant swelling in your legs, asymmetric swelling between one leg or the other, chest pain or have worsening shortness of breath please return to the emergency department immediately. Forms: Elevated Blood Pressure Referrals: DELORES HAQ MD [Primary Care Provider] - Follow up as needed Scribe Attestation: 11/19/16 00:19 I personally performed the services described in the documentation, reviewed and edited the documentation which was dictated to the scribe in my presence, and it accurately records my words and actions. (CAROLYN HAGAN) Scribe Documentation - Scribe Written by Sarah:: Sarah Cormier 11/18/2016 23:47 acting as scribe for :: Chicho
[2016-11-18 22:14] VITALS: BP 133/86
--- NOTE | 2016-11-19 07:58 | EKG REPORT ---
SEVERITY:- OTHERWISE NORMAL ECG - SINUS ARRHYTHMIA, RATE 46-63 : Confirmed by: Jasper Olson MD 19-Nov-2016 07:57:23
== END 2016-11-18 22:15 | disposition home or self-care (01) ==
LOC: ER 19:55
DX: R06.02 Shortness of breath (principal); I10 Essential (primary) hypertension
CPT/HCPCS: 93005; 93010; 99284

== ENCOUNTER 2016-11-21 11:50 | Emergency (ER) | payer MEDICAID ==
--- NOTE | 2016-11-21 12:10 | ER Document Report ---
ED Medical Screen (RME) - General Chief Complaint: Cough Stated Complaint: NECK PAIN Time Seen by Provider: 11/21/16 12:02 Notes: This 25-year-old female patient comes emergency room complaining of pain in the chest from coughing. Sharp pain in the left neck with laying down. Left calf pain when walking. Patient delivered 1 week ago. She was seen here 3 days ago complaining of shortness of breath when walking. At that time she denied chest pain. Today she reports the chest pain has been getting worse. She also reports the breathing is okay she lays on her right side but is worse laying on her left side. Her blood pressure is elevated today compared to previous visits. Exam shows no respiratory distress, normal pulse ox, very tender to palpate the left posterior cervical and trapezius muscles. I have greeted and performed a rapid initial assessment of this patient. A comprehensive ED assessment and evaluation of the patient, analysis of test results and completion of the medical decision making process will be conducted by additional ED providers. TRAVEL OUTSIDE OF THE [place] IN LAST 30 DAYS: No - Related Data Allergies/Adverse Reactions: No Known Allergies Allergy (Verified 11/21/16 11:55) Past Medical History - Social History Chew tobacco use (# tins/day): No Frequency of alcohol use: None Drug Abuse: None Pulmonary Medical History: Reports: Hx Pneumonia Renal/ Medical History: Denies: Hx Peritoneal Dialysis Surgical Hx: Negative - Immunizations Immunizations up to date: Yes Hx Diphtheria, Pertussis, Tetanus Vaccination: Yes Physical Exam - Vital signs Vitals: Temp Pulse Resp BP Pulse Ox 98.3 F 62 20 168/87 H 99 11/21/16 11:56 11/21/16 11:56 11/21/16 11:56 11/21/16 11:56 11/21/16 11:56 Course - Vital Signs Vital signs: Temp Pulse Resp BP Pulse Ox 98.3 F 62 20 168/87 H 99 11/21/16 11:56 11/21/16 11:56 11/21/16 11:56 11/21/16 11:56 11/21/16 11:56
[2016-11-21 12:40] LABS: ABSOLUTE EOSINOPHILS # (AUTO) 0.2 10^3/uL (0.0-0.6); ABSOLUTE LYMPHOCYTES (AUTO) 1.4 10^3/uL (0.5-4.7); ABSOLUTE MONOCYTES (AUTO) 0.4 10^3/uL (0.1-1.4); ABSOLUTE NEUT (AUTO) 4.2 10^3/uL (1.7-8.2); BASOPHILS % (AUTO) 0.4 % (0-2); EOSINOPHILS % (AUTO) 2.6 % (0-6); HEMOGLOBIN 10.1 g/dL (12.0-15.5); HGB HCT DIFFERENCE -0.7; LYMPHOCYTES % (AUTO) 23.1 % (13-45); MEAN CORPUSCULAR HGB CONC 32.5 g/dL (32.0-36.0); MEAN CORPUSCULAR VOLUME 74 fl (80-97); MONOCYTES % (AUTO) 6.6 % (3-13); RED BLOOD COUNT 4.21 10^6/uL (3.72-5.28); RED CELL DISTRIBUTION WIDTH 18.6 % (11.5-14.0); SEGMENTED NEUTROPHILS % (AUTO) 67.3 % (42-78); WHITE BLOOD COUNT 6.3 10^3/uL (4.0-10.5)
[2016-11-21 12:55] LABS: ALANINE AMINOTRANSFERASE 49 U/L (9-52); ALBUMIN 3.3 g/dL (3.5-5.0); ALKALINE PHOSPHATASE 136 U/L (38-126); ANION GAP 8 (5-19); APPEARANCE,URINE CLEAR; ASPARTATE AMINO TRANSFERASE 29 U/L (14-36); BILIRUBIN,DIRECT 0.3 mg/dL (0.0-0.4); BILIRUBIN,TOTAL 0.4 mg/dL (0.2-1.3); BILIRUBIN,URINE NEGATIVE (NEGATIVE); BLOOD UREA NITROGEN 11 mg/dL (7-20); CALCIUM 9.1 mg/dL (8.4-10.2); CARBON DIOXIDE 23 mmol/L (22-30); CHLORIDE 109 mmol/L (98-107); CREATININE RESULT 0.57 mg/dL (0.52-1.25); GLUCOSE 78 mg/dL (75-110); GLUCOSE, URINE NEGATIVE (NEGATIVE); KETONES,URINE NEGATIVE (NEGATIVE); LEUKOCYTE ESTERASE,URINE LARGE (NEGATIVE); NITRITE,URINE NEGATIVE (NEGATIVE); POTASSIUM 4.1 mmol/L (3.6-5.0); PROTEIN,URINE NEGATIVE (NEGATIVE); SODIUM 139.5 mmol/L (137-145); TOTAL PROTEIN 6.2 g/dL (6.3-8.2)
--- NOTE | 2016-11-21 12:55 | RADIOLOGY REPORT (SQ) ---
EXAM DESCRIPTION: CHEST PA/LAT COMPLETED DATE/TIME: 11/21/2016 12:46 pm REASON FOR STUDY: SOB COMPARISON: 11/17/2015 NUMBER OF VIEWS: Two view. TECHNIQUE: Frontal and lateral radiographic views of the chest acquired. LIMITATIONS: None. FINDINGS: LUNGS AND PLEURA: Subsegmental airspace opacity in the right lower lung lateral to the hea rt border. No effusions. MEDIASTINUM AND HILAR STRUCTURES: No masses. No contour abnormalities. HEART AND VASCULAR STRUCTURES: Heart enlarged without failure. Aorta normal for age. BONES: No acute findings. HARDWARE: None in the chest. OTHER: No other significant finding. IMPRESSION: Atelectasis or early pneumonia right lower lobe. TECHNICAL DOCUMENTATION: JOB ID: [id number] [employer]- All Rights Reserved
[2016-11-21] MEDS ORDERED: NORMAL SALINE 1000 ML 1,000 ML IV ONE (13:02)
--- NOTE | 2016-11-21 13:42 | ER Document Report ---
ED General - General Chief Complaint: Cough Stated Complaint: NECK PAIN Time Seen by Provider: 11/21/16 12:02 TRAVEL OUTSIDE OF THE [place] IN LAST 30 DAYS: No - HPI Notes: Patient is a 25-year-old female who is 1 week who presents to the ED complaining of chest pain, cough, and occasional left lower leg pain 3-5 days. Pt states that she does have some left sided neck pain. Patient states that usually at nighttime she will have some posterior left lower leg pain without any swelling, warmth, redness. Patient states that she does have chest pain but it is with deep inspiration and it is sharp to the right sternal area. Patient has an occasional cough that is dry and nonproductive. Patient states that she is ambulating without any difficulties and without any pain. She is able to walk without becoming short of breath. She still eating and drinking without any difficulties. She has not noticed any fevers. She has not taken any erce-mcd-yfzmfda meds for symptoms. She denies any drug allergies or significant past medical history otherwise. Denies any headache, fever, head injury, neck stiffness, URI, sore throat, palpitations, syncope, shortness of breath, wheeze, dyspnea, abdominal pain, nausea/vomiting/diarrhea, urinary retention, dysuria, hematuria, numbness/tingling, muscle paralysis/weakness, or rash. - Related Data Allergies/Adverse Reactions: No Known Allergies Allergy (Verified 11/21/16 11:55) Past Medical History - Social History Smoking Status: Never Smoker Chew tobacco use (# tins/day): No Frequency of alcohol use: None Drug Abuse: None Family History: None Pulmonary Medical History: Reports: Hx Pneumonia Renal/ Medical History: Denies: Hx Peritoneal Dialysis Surgical Hx: Negative - Immunizations Immunizations up to date: Yes Hx Diphtheria, Pertussis, Tetanus Vaccination: Yes Review of Systems - Review of Systems Notes: REVIEW OF SYSTEMS: CONSTITUTIONAL : Denies fever, chills, or sweats. Denies recent illness. EENT: Denies eye, ear, throat, or mouth pain or symptoms. Denies nasal or sinus congestion or discharge. Denies throat, tongue, or mouth swelling or difficulty swallowing. CARDIOVASCULAR: see hpi. Denies palpitations or racing or irregular heart beat. Denies ankle edema. RESPIRATORY: see hpi GASTROINTESTINAL: Denies abdominal pain or distention. Denies nausea, vomiting , or diarrhea. Denies blood in vomitus, stools, or per rectum. Denies black, tarry stools. Denies constipation. GENITOURINARY: Denies difficulty urinating, painful urination, burning, frequency, blood in urine, or discharge. MUSCULOSKELETAL: see hpi. SKIN: Denies rash, lesions or sores. NEUROLOGICAL: Denies confusion or altered mental status. Denies passing out or loss of consciousness. Denies dizziness or lightheadedness. Denies headache. Denies weakness or paralysis or loss of use of either side. Denies problems with gait or speech. Denies sensory loss, numbness, or tingling. Denies seizures. PSYCHIATRIC: Denies anxiety or stress. Denies depression, suicidal ideation, or homicidal ideation. ALL OTHER SYSTEMS REVIEWED AND NEGATIVE. Dictation was performed using [employer] voice recognition software Physical Exam - Vital signs Vitals: Temp Pulse Resp BP Pulse Ox 98.3 F 62 20 168/87 H 99 11/21/16 11:56 11/21/16 11:56 11/21/16 11:56 11/21/16 11:56 11/21/16 11:56 Notes: PHYSICAL EXAMINATION: GENERAL: Well-appearing, well-nourished and in no acute distress. HEAD: Atraumatic, normocephalic. EYES: Pupils equal round and reactive to light, extraocular movements intact, sclera anicteric, conjunctiva are normal. ENT: EAC clear b/l. TM's intact b/l without erythema, fluid, or perforation. Nares patent and without discharge. oropharynx clear without exudates. No tonsilar hypertrophy or erythema. Moist mucous membranes. No sinus tenderness. NECK: Normal range of motion, supple without lymphadenopathy. No rigidity/ meningismus. No midline tenderness. + mild tenderness to left c-paraspinal and trap mm. Spurling negative. Chest: Equal rise/fall. No flail chest. + tenderness to palp 2nd costochondral area (tenderness elicited is pain described by patient) LUNGS: Breath sounds clear to auscultation bilaterally and equal. No wheezes rales or rhonchi. HEART: Regular rate and rhythm without murmurs, rubs, gallops. ABDOMEN: Soft, nontender, nondistended abdomen. No guarding, no rebound. No masses appreciated. Normal bowel sounds present. No CVA tenderness bilaterally. Musculoskeletal: LE's b/l: FROM to passive/active. Strength 5+/5. Warren negative b/l. Non-tender. No erythema, swelling, cord, or warmth. Extremities: No cyanosis, clubbing, or edema b/l. Peripheral pulses 2+. Capillary refill less than 3 seconds. NEUROLOGICAL: Normal speech, normal gait. Normal sensory, motor exams PSYCH: Normal mood, normal affect. SKIN: Warm, Dry, normal turgor, no rashes or lesions noted. Course - Re-evaluation Re-evalutation: 11/21/16 15:[address] Hernandez who is in agreement with discharge/plan: Patient is an afebrile, well-hydrated, 25-year-old female who presents the ED with a right lower lobe pneumonia and UTI. Vitals are stable. PE otherwise unremarkable. Pt not tachycardic, tachypneic, or hypoxic. Warren negative b/l. Pt has palpable chest pain on exam that is the pain described. CXR did show an early pneumonia and her UA shows probable UTI. UC pending. CBC, CMP otherwise unremarkable. D-dimer was elevated. CTA chest was unremarkable for PE, but did show mild cardiomegaly, small effusion, and probable infiltrate. Low suspicion at this time for any ACS, PE, pneumothorax, pericarditis, dissection, sepsis, meningitis, respiratory compromise, or fracture. Patient is aware that her condition can change from initial presentation and she needs to monitor symptoms closely and seek medical attention if any acute changes. Pt is not . I will send her home with a Rx for Levaquin 750mg PO daily x5 days which will also cover her UTI. Conservative measures otherwise for symptoms. Recheck with PCM this week. Return to the ED with any worsening/ concerning symptoms otherwise as reviewed in discharge. Patient is in agreement. - Vital Signs Vital signs: Temp Pulse Resp BP Pulse Ox 98.3 F 62 21 H 140/92 H 100 11/21/16 11:56 11/21/16 11:56 11/21/16 14:00 11/21/16 13:01 11/21/16 14:00 - Laboratory Result Diagrams: 11/21/16 12:26 11/21/16 12:26 Laboratory results interpreted by me: 11/21/16 11/21/16 11/21/16 12:26 12:26 12:26 Hgb 10.1 L Hct 31.0 L MCV 74 L MCH 24.0 L RDW 18.6 H D-Dimer Chloride 109 H Alkaline Phosphatase 136 H NT-Pro-B Natriuret Pep 486 H Total Protein 6.2 L Albumin 3.3 L Urine Blood Urine Urobilinogen Ur Leukocyte Esterase 11/21/16 11/21/16 12:26 12:26 Hgb Hct MCV MCH RDW D-Dimer 3.96 H Chloride Alkaline Phosphatase NT-Pro-B Natriuret Pep Total Protein Albumin Urine Blood MODERATE H Urine Urobilinogen 2.0 H Ur Leukocyte Esterase LARGE H Discharge - Discharge Clinical Impression: Right lower lobe pneumonia Qualifiers: Pneumonia type: due to unspecified organism Qualified Code(s): J18.1 - Lobar pneumonia, unspecified organism UTI (urinary tract infection) Qualifiers: Urinary tract infection type: site unspecified Hematuria presence: without hematuria Qualified Code(s): N39.0 - Urinary tract infection, site not specified Condition: Stable Disposition: HOME, SELF-CARE Instructions: Pneumonia ([facility]), Urinary Tract Infection ([facility]), Chest Wall Pain ( [facility]) Additional Instructions: Push fluids (i.e. water, cranberry juice) Proper hygenic technique Keep the skin clean Tylenol/ibuprofen as needed OTC meds as needed for cold symptoms Humidified air may help May use over the counter AZO for burning with urination Take medications as directed F/u with your PCM in 2-3 days for a recheck Consider consult with a Urologist for ongoing/worsening symptoms. Return to the ED with any worsening symptoms and/or development of fever, headache, chest pain, palpitations, syncope, shortness of breath, trouble breathing, abdominal pain, n/v/d, blood in stool/urine, loss of control of bowel /bladder, urinary retention, numbness/tingling, or other worsening symptoms that are concerning to you. Prescriptions: Levofloxacin [Levaquin 750 mg Tablet] 750 mg PO DAILY #5 tablet Forms: Elevated Blood Pressure Referrals: DELORES HAQ MD [Primary Care Provider] - Follow up in 3-5 days
--- NOTE | 2016-11-21 15:23 | RADIOLOGY REPORT (SQ) ---
EXAM DESCRIPTION: CTA CHEST COMPLETED DATE/TIME: 11/21/2016 3:10 pm REASON FOR STUDY: chest pain, cough COMPARISON: None. TECHNIQUE: CT scan of the chest performed using helical scanning technique with dynamic intravenous contrast injection. Images reviewed with lung, soft tissue and bone windows. Reconstructed coronal and sagittal MPR images reviewed. Additional 3 dimensional post-processing performed to develop Maximal Intensity Projection images (ND P). All images stored on PACS. All CT scanners at this facility use dose modulation, iterative reconstruction, and/or weight based d osing when appropriate to reduce radiation dose to as low as reasonably achievable (ALARA). [facility]: Dose Right [facility]: CareDose [facility]: Dose Right [facility]: Teradose 4D [facility]: RippleFunction CONTRAST TYPE AND DOSE: contrast/concentration: Isovue 370.00 mg/ml; Total Contrast Delivered: 78.0 ml; Total Saline Delivered: 110.0 ml Contrast bolus optimized for the pulmonary arteries. Not diagnostic for the aorta. RENAL FUNCTION: BUN 11 creatinine 0.6 RADIATION DOSE: Up-to-date CT equipment and radiation dose reduction techniques were employed. CTDIv ol: 19.8 - 20.2 mGy. DLP: 708 mGy-cm. . LIMITATIONS: Patient motion. FINDINGS: LUNGS AND PLEURA: Trace right pleural effusion and associated airspace disease. Interlobu lar septal thickening and patchy ground-glass attenuation especially in the right lung. AORTA AND GREAT VESSELS: No aneurysm. Contrast bolus not optimized for the aorta. HEART: Cardiomegaly. No pericardial effusion. No significant coronary artery calcifications. PULMONARY ARTERIES: No emboli visualized in the main pulmonary arteries or the segmental branches. HILAR AND MEDIASTINAL STRUCTURES: No identified masses or abnormal nodes. HARDWARE: None in the chest. UPPER ABDOMEN: No significant findings. Limited exam. THYROID AND OTHER SOFT TISSUES: No masses. No adenopathy. BONES: No acute or significant finding. 3D MIPS: Confirm above findings. OTHER: No other significant finding. IMPRESSION: 1. No PE. 2. Cardiomegaly. Trace right pleural effusion. Interstitial edema. COMMENT: Quality ID # [id number]: Final reports with documentation of one or more dose reduction techniques (e.g., Automated exposure control, adjustment of the mA and/or kV according to patient size, use of iterative reconstruction technique) TECHNICAL DOCUMENTATION: JOB ID: [id number]- All Rights Reserved
[2016-11-21 16:07] VITALS: BP 166/92
--- NOTE | 2016-11-21 16:07 | EKG REPORT ---
SEVERITY:- BORDERLINE ECG - SINUS RHYTHM PROBABLE LEFT ATRIAL ABNORMALITY : Confirmed by: Jasper Olson MD 21-Nov-2016 16:06:13
== END 2016-11-21 16:05 | disposition home or self-care (01) ==
LOC: ER 11:50
DX: J18.1 Lobar pneumonia, unspecified organism (principal); N39.0 Urinary tract infection, site not specified; M54.2 Cervicalgia; M79.662 Pain in left lower leg
CPT/HCPCS: 93005; 99284; 96360; 36415; 85025; 80053; 81001; 85379; 83880; 71020; 71275; 93010; J7030

== ENCOUNTER 2016-12-28 09:08 | Emergency (ER) | payer MEDICAID ==
[2016-12-28 10:43] LABS: ABSOLUTE EOSINOPHILS # (AUTO) 0.3 10^3/uL (0.0-0.6); ABSOLUTE LYMPHOCYTES (AUTO) 2.3 10^3/uL (0.5-4.7); ABSOLUTE MONOCYTES (AUTO) 0.2 10^3/uL (0.1-1.4); ABSOLUTE NEUT (AUTO) 2.7 10^3/uL (1.7-8.2); BASOPHILS % (AUTO) 0.4 % (0-2); EOSINOPHILS % (AUTO) 5.8 % (0-6); HEMATOCRIT 35.9 % (36.0-47.0); HEMOGLOBIN 11.9 g/dL (12.0-15.5); HGB HCT DIFFERENCE -0.2; LYMPHOCYTES % (AUTO) 41.2 % (13-45); MEAN CORPUSCULAR HEMOGLOBIN 25.1 pg (27.0-33.4); MEAN CORPUSCULAR HGB CONC 33.1 g/dL (32.0-36.0); MEAN CORPUSCULAR VOLUME 76 fl (80-97); MONOCYTES % (AUTO) 4.4 % (3-13); RED BLOOD COUNT 4.73 10^6/uL (3.72-5.28); SEGMENTED NEUTROPHILS % (AUTO) 48.2 % (42-78); WHITE BLOOD COUNT 5.6 10^3/uL (4.0-10.5)
[2016-12-28 10:59] LABS: ALANINE AMINOTRANSFERASE 38 U/L (9-52); ALBUMIN 4.2 g/dL (3.5-5.0); ALKALINE PHOSPHATASE 71 U/L (38-126); ANION GAP 11 (5-19); ASPARTATE AMINO TRANSFERASE 24 U/L (14-36); BILIRUBIN,DIRECT 0.2 mg/dL (0.0-0.4); BILIRUBIN,TOTAL 0.3 mg/dL (0.2-1.3); BLOOD UREA NITROGEN 5 mg/dL (7-20); CALCIUM 9.5 mg/dL (8.4-10.2); CARBON DIOXIDE 25 mmol/L (22-30); CHLORIDE 105 mmol/L (98-107); CREATININE RESULT 0.55 mg/dL (0.52-1.25); GLUCOSE 89 mg/dL (75-110); POTASSIUM 4.2 mmol/L (3.6-5.0); SODIUM 141.4 mmol/L (137-145)
[2016-12-28 11:01] LABS: APPEARANCE,URINE CLOUDY; BILIRUBIN,URINE NEGATIVE (NEGATIVE); GLUCOSE, URINE NEGATIVE (NEGATIVE); KETONES,URINE NEGATIVE (NEGATIVE); LEUKOCYTE ESTERASE,URINE TRACE (NEGATIVE); NITRITE,URINE NEGATIVE (NEGATIVE); PROTEIN,URINE 30 mg/dL (NEGATIVE); URINE SPECIFIC GRAVITY 1.009; UROBILINOGEN,URINE NEGATIVE mg/dL (<2.0)
[2016-12-28] MEDS ORDERED: HYDROCHLOROTHIAZIDE 25 MG TABLET PO ONE (11:40)
--- NOTE | 2016-12-28 11:43 | ER Document Report ---
ED General - General Chief Complaint: High Blood Pressure Stated Complaint: BLOOD PRESSURE ISSUES Time Seen by Provider: 12/28/16 09:31 TRAVEL OUTSIDE OF THE [place] IN LAST 30 DAYS: No - HPI Patient complains to provider of: Hypertension Notes: Patient is approximately 5 weeks coming in for elevated blood pressure patient was at the PRODUCT ASSEMBLER's office today when they found the patient's blood pressure to be elevated. Patient denies any fevers chills nausea vomiting headaches chest pain abdominal pain. Resting comfortably upon my evaluation denies history of hypertension in the past denies any antihypertensive medications. - Related Data Allergies/Adverse Reactions: No Known Allergies Allergy (Verified 12/28/16 09:20) Past Medical History - Social History Smoking Status: Never Smoker Chew tobacco use (# tins/day): No Frequency of alcohol use: None Drug Abuse: None Family History: Reviewed & Not Pertinent Pulmonary Medical History: Reports: Hx Pneumonia Renal/ Medical History: Denies: Hx Peritoneal Dialysis Surgical Hx: Negative - Immunizations Immunizations up to date: Yes Hx Diphtheria, Pertussis, Tetanus Vaccination: Yes Review of Systems - Review of Systems Constitutional: Other - htn EENT: No symptoms reported Cardiovascular: No symptoms reported Respiratory: No symptoms reported Gastrointestinal: No symptoms reported Genitourinary: No symptoms reported Female Genitourinary: No symptoms reported Musculoskeletal: No symptoms reported Skin: No symptoms reported Hematologic/Lymphatic: No symptoms reported Neurological/Psychological: No symptoms reported Physical Exam - Vital signs Vitals: Temp Pulse BP Pulse Ox 97.6 F 88 169/116 H 100 12/28/16 09:20 12/28/16 09:20 12/28/16 09:20 12/28/16 09:20 Interpretation: Hypertensive - General General appearance: Appears well, Alert - HEENT Head: Normocephalic, Atraumatic Eyes: Normal Pupils: PERRL - Respiratory Respiratory status: No respiratory distress Chest status: Nontender Breath sounds: Normal Chest palpation: Normal - Cardiovascular Rhythm: Regular Heart sounds: Normal auscultation Murmur: No - Abdominal Inspection: Normal Distension: No distension Bowel sounds: Normal Tenderness: Nontender Organomegaly: No organomegaly - Back Back: Normal, Nontender - Extremities General upper extremity: Normal inspection, Nontender, Normal color, Normal ROM , Normal temperature General lower extremity: Normal inspection, Nontender, Normal color, Normal ROM , Normal temperature, Normal weight bearing. No: Warren's sign - Neurological Neuro grossly intact: Yes Cognition: Normal Orientation: AAOx4 Cipriano Coma Scale Eye Opening: Spontaneous Cipriano Coma Scale Verbal: Oriented Cipriano Coma Scale Motor: Obeys Commands Kitzmiller Coma Scale Total: 15 Speech: Normal Motor strength normal: LUE, RUE, LLE, RLE Sensory: Normal - Psychological Associated symptoms: Normal affect, Normal mood - Skin Skin Temperature: Warm Skin Moisture: Dry Skin Color: Normal Course - Re-evaluation Re-evalutation: 12/28/16 14:51 Laboratory studies on shows protein in the urine no other signs of significant pathology. LDH platelets and uric acid are all negative. Discussed with OB/ FOLDER STITCHER OPERATOR on-call recommended antihypertensives and was okay with hydrochlorothiazide at this time. Discussed with patient patient was given a one-month supply hydrochlorthiazide encouraged follow-up with PCP for further evaluation. - Vital Signs Vital signs: Temp Pulse Resp BP Pulse Ox 97.6 F 88 14 155/104 H 100 12/28/16 09:20 12/28/16 09:20 12/28/16 12:01 12/28/16 12:01 12/28/16 12:01 - Laboratory Result Diagrams: 12/28/16 10:13 12/28/16 10:13 Laboratory results interpreted by me: 12/28/16 12/28/16 12/28/16 10:13 10:13 10:27 Hgb 11.9 L Hct 35.9 L MCV 76 L MCH 25.1 L RDW 23.0 H BUN 5 L Urine Protein 30 H Urine Blood LARGE H Ur Leukocyte Esterase TRACE H Discharge - Discharge Clinical Impression: Hypertension Qualifiers: Hypertension type: unspecified Qualified Code(s): I10 - Essential (primary) hypertension Disposition: HOME, SELF-CARE Instructions: High Blood Pressure, Requiring Treatment ([facility]), Hydrochlorothiazide ([facility]) Additional Instructions: Laboratory studies today were discussed with PRODUCT ASSEMBLER on-call. Please start taking medication as prescribed. Return to the ER symptoms worsen. Is very important to follow-up with your primary care physician for further management of your blood pressure. Prescriptions: Hydrochlorothiazide 25 mg PO DAILY #30 tablet Referrals: DELORES HAQ MD [Primary Care Provider] - Follow up as needed
[2016-12-28 12:03] VITALS: BP 155/104
== END 2016-12-28 12:05 | disposition home or self-care (01) ==
LOC: ER 09:08
DX: O16.5 Unspecified maternal hypertension, complicating the puerperium (principal)
CPT/HCPCS: 99283; 36415; 83615; 84550; 84703; 85025; 80053; 81001; J3490

== ENCOUNTER 2017-01-02 11:43 | Emergency (ER) | payer MEDICAID ==
[2017-01-02] MEDS ORDERED: DIPHENHYDRAMINE HCL 25 MG CAPSULE PO ONE (11:54)
[2017-01-02] MEDS ORDERED: PROCHLORPERAZINE MALEATE 10 MG TABLET PO ONE (11:54)
[2017-01-02] MEDS ORDERED: IBUPROFEN 800 MG TABLET PO ONE (11:54)
--- NOTE | 2017-01-02 11:56 | ER Document Report ---
ED Medical Screen (RME) - General Chief Complaint: Headache Stated Complaint: DIZZY/HEADACHE Time Seen by Provider: 01/02/17 11:50 Notes: 26-year-old female patient complains of left temporal forehead headache since starting Procardia 30 mg 2 days ago. She was seen here last Tuesday with elevated blood pressure. Her pressure has been elevated since she delivered on 11/14/2016. On Tuesday she was started on hydrochlorothiazide. On Tuesday she had Procardia added. Brief exam shows no posterior cervical muscle tenderness. There is tenderness in the left temporal region and left lateral forehead muscles. She does have some nasal sinus congestion which she reports has been going on for a few days. I have greeted and performed a rapid initial assessment of this patient. A comprehensive ED assessment and evaluation of the patient, analysis of test results and completion of the medical decision making process will be conducted by additional ED providers. TRAVEL OUTSIDE OF THE [place] IN LAST 30 DAYS: No - Related Data Allergies/Adverse Reactions: No Known Allergies Allergy (Verified 01/02/17 11:47) Past Medical History Pulmonary Medical History: Reports: Hx Pneumonia Renal/ Medical History: Denies: Hx Peritoneal Dialysis - Immunizations Immunizations up to date: Yes Hx Diphtheria, Pertussis, Tetanus Vaccination: Yes Physical Exam - Vital signs Vitals: Temp Pulse Resp BP Pulse Ox 98.6 F 101 H 16 148/83 H 99 01/02/17 11:47 01/02/17 11:47 01/02/17 11:47 01/02/17 11:47 01/02/17 11:47 Course - Vital Signs Vital signs: Temp Pulse Resp BP Pulse Ox 98.6 F 101 H 16 148/83 H 99 01/02/17 11:47 01/02/17 11:47 01/02/17 11:47 01/02/17 11:47 01/02/17 11:47
--- NOTE | 2017-01-02 12:08 | ER Document Report ---
ED Headache - General Chief Complaint: Headache Stated Complaint: DIZZY/HEADACHE Time Seen by Provider: 01/02/17 11:50 Mode of Arrival: Ambulatory Information source: Patient, [facility] Records Notes: This 26-year-old female patient comes emergency room complaining of a left frontal and temporal headache. She reports the headache started on Tuesday 2 days ago after she was started on Procardia 30 mg daily for high blood pressure. She was seen here on Tuesday last week for high blood pressure and started on hydrochlorothiazide 25 mg daily. She did deliver on 11/14/2016, has had elevated blood pressure and some proteinuria since then. She does not have a history of headaches. She does have some nasal and sinus congestion which has been going on for a few days. There is no fever, nausea vomiting diarrhea or cough. TRAVEL OUTSIDE OF THE [place] IN LAST 30 DAYS: No - Related Data Allergies/Adverse Reactions: No Known Allergies Allergy (Verified 01/02/17 11:47) Past Medical History - General Information source: Patient, [facility] Records - Social History Smoking Status: Never Smoker Cigarette use (# per day): No Chew tobacco use (# tins/day): No Frequency of alcohol use: None Drug Abuse: None Lives with: Family Family History: Reviewed & Not Pertinent - Past Medical History Cardiac Medical History: Reports: Hx Hypertension - Has had elevated blood pressure since her delivery last month. Pulmonary Medical History: Reports: Hx Pneumonia EENT Medical History: Reports: None Neurological Medical History: Reports: None Endocrine Medical History: Reports: None Renal/ Medical History: Reports: None GI Medical History: Reports: None Musculoskeltal Medical History: Reports None Psychiatric Medical History: Reports: None Traumatic Medical History: Reports: None Surgical Hx: Negative - Immunizations Immunizations up to date: Yes Hx Diphtheria, Pertussis, Tetanus Vaccination: Yes Review of Systems - Review of Systems Constitutional: No symptoms reported EENT: See HPI Cardiovascular: No symptoms reported Respiratory: No symptoms reported Gastrointestinal: No symptoms reported Genitourinary: No symptoms reported Female Genitourinary: No symptoms reported Musculoskeletal: No symptoms reported Skin: No symptoms reported Hematologic/Lymphatic: No symptoms reported Neurological/Psychological: See HPI Physical Exam - Vital signs Vitals: Temp Pulse Resp BP Pulse Ox 98.6 F 101 H 16 148/83 H 99 01/02/17 11:47 01/02/17 11:47 01/02/17 11:47 01/02/17 11:47 01/02/17 11:47 Interpretation: Hypertensive - General General appearance: Appears well, Alert In distress: None - HEENT Head: Normocephalic, Atraumatic, Tenderness - There is tenderness to palpate the left lateral forehead and scalp. There is tenderness to the left temporal region. Eyes: Normal Pupils: PERRL Sinus: Other - There is some nasal and sinus congestion with change in the patient's voice from the sinus congestion. Pharynx: Normal Neck: Supple - There is no tenderness to the posterior cervical muscles. - Respiratory Respiratory status: No respiratory distress Breath sounds: Normal - Cardiovascular Rhythm: Regular - Abdominal Inspection: Normal - Back Back: Normal - Extremities General upper extremity: Normal inspection General lower extremity: Normal inspection - Neurological Neuro grossly intact: Yes - Psychological Associated symptoms: Normal affect, Normal mood - Skin Skin Temperature: Warm Skin Moisture: Dry Skin Color: Normal Course - Re-evaluation Re-evalutation: 01/02/17 13:00 Patient reports headache is much better at this time. - Vital Signs Vital signs: Temp Pulse Resp BP Pulse Ox 98.1 F 90 16 141/88 H 100 01/02/17 12:58 01/02/17 12:58 01/02/17 12:58 01/02/17 12:58 01/02/17 12:58 Discharge - Discharge Clinical Impression: Nasal sinus congestion Tension type headache Qualifiers: Headache chronicity pattern: acute headache Intractability: not intractable Qualified Code(s): G44.209 - Tension-type headache, unspecified, not intractable High blood pressure Qualifiers: Hypertension type: unspecified Qualified Code(s): I10 - Essential (primary) hypertension Condition: Stable Additional Instructions: Your headache seems to be a combination of some muscle tension headache, and your sinus congestion from a probable viral upper respiratory tract infection. You may try taking Benadryl with Motrin for headache if needed. Plenty of rest and drink plenty of fluids. Follow-up with your doctor this week to check on your blood pressure. RETURN TO THE EMERGENCY ROOM IF ANY NEW OR WORSENING SYMPTOMS.
[2017-01-02 12:59] VITALS: BP 141/88
== END 2017-01-02 13:04 | disposition home or self-care (01) ==
LOC: ER 11:43
DX: G44.209 Tension-type headache, unspecified, not intractable (principal); I10 Essential (primary) hypertension; R09.81 Nasal congestion
CPT/HCPCS: 99283; J3490 ×2; S0183

== ENCOUNTER 2019-08-22 15:42 | Emergency (ER) | payer MEDICAID ==
[2019-08-22] MEDS ORDERED: DIPHENHYDRAMINE HCL 50 MG/ML VIAL IV ONE (17:07)
[2019-08-22] MEDS ORDERED: PROCHLORPERAZINE EDISYLATE INJ 10 MG/2 ML VIAL IV ONE (17:07)
[2019-08-22] MEDS ORDERED: KETOROLAC TROMETHAMINE INJ/PF 30 MG/1 ML SDV IV ONE (17:07)
[2019-08-22] MEDS ORDERED: NORMAL SALINE 1000 ML 1,000 ML IV ONE (17:07)
--- NOTE | 2019-08-22 17:10 | ER Document Report ---
ED Headache - General Chief Complaint: Headache Stated Complaint: ANXIETY Time Seen by Provider: 08/22/19 16:37 Primary Care Provider: SUSAN MCBRIDE FNP-C [Primary Care Provider] - Follow up as needed Mode of Arrival: Ambulatory Information source: Patient Notes: Patient presents complaining of headache that started yesterday. Patient states headache is varied in intensity. Patient states headache right now is throbbing to the frontal area. Patient states around 230 she became dizzy and felt anxious and her breathing increase. Patient states that as her breathing increased her hands began to go numb and tingly. Patient states this made her more anxious. Patient presently states the dizziness, hand tingling and rapid breathing have all resolved. Patient denies any nausea or vomiting. TRAVEL OUTSIDE OF THE [place] IN LAST 30 DAYS: No - HPI Patient complains to provider of: Headache Onset: Yesterday Onset was: Gradual Timing: Still present Quality of pain: Throbbing Pain Level: 4 Associated symptoms: denies: Chills, Confusion, Dizzy, Neck pain, Trouble walking Exacerbated by: denies: Light, Noise Similar symptoms previously: Yes Recently seen / treated by doctor: No - Related Data Allergies/Adverse Reactions: No Known Allergies Allergy (Verified 08/22/19 16:34) Past Medical History - General Information source: Patient - Social History Smoking Status: Never Smoker Frequency of alcohol use: None Drug Abuse: None Occupation: [employer] Lives with: Family Family History: Reviewed & Not Pertinent Patient has homicidal ideation: No - Past Medical History Cardiac Medical History: Reports: Hx Hypertension Pulmonary Medical History: Reports: Hx Pneumonia Renal/ Medical History: Denies: Hx Peritoneal Dialysis Surgical Hx: Negative - Immunizations Immunizations up to date: Yes Hx Diphtheria, Pertussis, Tetanus Vaccination: Yes Review of Systems - Review of Systems Constitutional: No symptoms reported. denies: Fever, Recent illness EENT: No symptoms reported Cardiovascular: Dizziness. denies: Chest pain Respiratory: No symptoms reported. denies: Cough, Short of breath Gastrointestinal: No symptoms reported. denies: Vomiting Genitourinary: No symptoms reported Female Genitourinary: No symptoms reported Musculoskeletal: No symptoms reported. denies: Back pain Skin: No symptoms reported. denies: Rash Hematologic/Lymphatic: No symptoms reported Neurological/Psychological: Anxiety, Headaches Physical Exam - Vital signs Vitals: Temp 98.7 F 08/22/19 16:35 - General General appearance: Appears well, Alert In distress: None - HEENT Head: Normocephalic, Atraumatic Eyes: Normal Conjunctiva: Normal Eyelashes: Normal Pupils: PERRL Ears: Normal External canal: Normal Tympanic membrane: Normal Nasal: Normal Mouth/Lips: Normal Mucous membranes: Normal Pharynx: Normal Neck: Normal, Supple. No: Lymphadenopathy, Meningismus - Respiratory Respiratory status: No respiratory distress Chest status: Nontender Breath sounds: Normal. No: Rales, Rhonchi, Stridor, Wheezing Chest palpation: Normal - Cardiovascular Rhythm: Regular Heart sounds: S1 appreciated, S2 appreciated - Abdominal Inspection: Normal Tenderness: Nontender - Back Back: Normal, Nontender - Extremities General upper extremity: Normal inspection, Normal strength General lower extremity: Normal inspection, Normal strength - Neurological Neuro grossly intact: Yes Cognition: Normal Cipriano Coma Scale Eye Opening: Spontaneous Radisson Coma Scale Verbal: Oriented Cipriano Coma Scale Motor: Obeys Commands Cipriano Coma Scale Total: 15 - Psychological Associated symptoms: Normal affect, Normal mood - Skin Skin Temperature: Warm Skin Moisture: Dry Skin Color: Normal Course - Re-evaluation Re-evalutation: 08/22/19 18:43 Patient reports that headache pain is improved at this time. Patient denies any dizziness symptoms. Patient without any chest pain or shortness of breath. 08/22/19 18:46 Patient presents after having an episode in which she had dizziness in which she started to become anxious breathing fast and had hand cramping. Patient's dizziness and hand cramping resolved prior to initial evaluation. Patient's headache was treated with IV fluids and additional medications. The patient presents with headache without signs of EDGE KITTER bleed, stroke, infection, or other serious etiology. The patient is neurologically intact. Given the extremely low risk of these diagnoses further testing and evaluation for these possibilities does not appear to be indicated at this time. The patient has been instructed to return if the symptoms worsen or change in any way. - Vital Signs Vital signs: Temp Pulse Resp BP Pulse Ox 98.5 F 88 16 116/80 97 08/22/19 19:17 08/22/19 19:17 08/22/19 19:17 08/22/19 19:17 08/22/19 19:17 - Laboratory Result Diagrams: 08/22/19 17:34 08/22/19 17:34 Laboratory results interpreted by me: Labs- All tests 24 hr 08/22/19 08/22/19 08/22/19 17:34 17:34 17:34 WBC 10.4 RBC 4.85 Hgb 14.5 Hct 43.0 MCV 89 MCH 30.0 MCHC 33.8 RDW 13.0 Plt Count 332 Lymph % (Auto) 19.1 Creek % (Auto) 4.0 Eos % (Auto) 1.1 Baso % (Auto) 0.3 Absolute Neuts (auto) 7.9 Absolute Lymphs (auto) 2.0 Absolute Monos (auto) 0.4 Absolute Eos (auto) 0.1 Absolute Basos (auto) 0.0 Seg Neutrophils % 75.5 Sodium 137.3 Potassium 4.0 Chloride 103 Carbon Dioxide 28 Anion Gap 6 BUN 9 Creatinine 0.58 Est GFR ( Amer) > 60 Est GFR (MDRD) Non-Af > 60 Glucose 96 Calcium 9.6 Serum HCG, Qual NEGATIVE - EKG Interpretation by Me EKG shows normal: Sinus rhythm Rate: Normal Rhythm: NSR When compared to previous EKG there are: No significant change Additional EKG results interpreted by me: 08/22/19 18:44 Sinus rhythm rate 81, QTc 432, no acute ischemic changes Discharge - Discharge Clinical Impression: Dizziness, Hyperventilating Headache Qualifiers: Headache type: unspecified Headache chronicity pattern: unspecified pattern Intractability: not intractable Qualified Code(s): R51 - Headache Condition: Stable Disposition: HOME, SELF-CARE Instructions: Use of Diphenhydramine, Dizziness ([facility]), Headache ([facility]), Toradol Injection ([facility]) Additional Instructions: Return immediately for any new or worsening symptoms Followup with your primary care provider, call tomorrow to make a followup appointment Anxiety can make someone hyperventilate which can worsen dizziness and hand cramping Prescriptions: Meclizine HCl [Antivert 25 mg Tablet] 25 mg PO ASDIR PRN #12 tablet PRN Reason: Forms: Return to Work Referrals: SUSAN MCBRIDE FNP-C [Primary Care Provider] - Follow up as needed
[2019-08-22 17:52] LABS: ABSOLUTE EOSINOPHILS # (AUTO) 0.1 10^3/uL (0.0-0.6); ABSOLUTE MONOCYTES (AUTO) 0.4 10^3/uL (0.1-1.4); ABSOLUTE NEUT (AUTO) 7.9 10^3/uL (1.7-8.2); BASOPHILS % (AUTO) 0.3 % (0-2); EOSINOPHILS % (AUTO) 1.1 % (0-6); HEMOGLOBIN 14.5 g/dL (12.0-15.5); LYMPHOCYTES % (AUTO) 19.1 % (13-45); MEAN CORPUSCULAR HGB CONC 33.8 g/dL (32.0-36.0); MEAN CORPUSCULAR VOLUME 89 fl (80-97); PLATELET COUNT 332 10^3/uL (150-450); RED BLOOD COUNT 4.85 10^6/uL (3.72-5.28); SEGMENTED NEUTROPHILS % (AUTO) 75.5 % (42-78); TOTAL CELLS COUNTED % (AUTO) 100 %; WHITE BLOOD COUNT 10.4 10^3/uL (4.0-10.5)
[2019-08-22 18:08] LABS: ANION GAP 6 (5-19); BLOOD UREA NITROGEN 9 mg/dL (7-20); CALCIUM 9.6 mg/dL (8.4-10.2); CARBON DIOXIDE 28 mmol/L (22-30); CHLORIDE 103 mmol/L (98-107); GLUCOSE 96 mg/dL (75-110)
[2019-08-22 19:20] VITALS: BP 116/80
--- NOTE | 2019-08-23 08:03 | EKG REPORT ---
SEVERITY:- BORDERLINE ECG - SINUS RHYTHM PROBABLE LEFT ATRIAL ABNORMALITY : Confirmed by: Taylor Potter MD 23-Aug-2019 08:02:56
== END 2019-08-22 19:20 | disposition home or self-care (01) ==
LOC: ER 15:42
DX: R42 Dizziness and giddiness (principal); R06.4 Hyperventilation; R51 Headache; F41.9 Anxiety disorder, unspecified; R20.0 Anesthesia of skin; I10 Essential (primary) hypertension
CPT/HCPCS: 93005; 99284; 96361; 96374; 96375; 36415; 84703; 85025; 80048; 93010; J1200; J1885; J0780; J7030